=== PATIENT | male | born 1945 | race Caucasian/White ===

== ENCOUNTER → 2020-02-08 | Outpatient (CLI) | payer MEDICARE, BC ==
--- NOTE | 2020-02-09 06:38 | CT ---
EXAMINATION TYPE: CT angio chest DATE OF EXAM: 02/08/2020 2:58 PM COMPARISON: None at this institution. HISTORY: Thoracic AAA CT DLP: 763.60 mGycm Automated exposure control for dose reduction was used. CONTRAST: CTA scan of the thorax is performed without and with IV Contrast, patient injected with 100 ml mL of Isovue 370, thoracic aneurysm protocol. 3D reconstructed [facility] and reviewed.. FINDINGS: LUNGS: Mild bilateral linear scarring and/or atelectasis. No suspicious focal consolidation or ground glass opacity. There is no pleural effusion or pneumothorax seen bilaterally. No concerning masses. The tracheobronchial tree is patent. MEDIASTINUM: There is satisfactory enhancement of the central pulmonary arteries, there is pulmonary embolism beginning in the right lower lobar branch axial image 31 with segmental extension. Additiona l segmental and subsegmental extension noted axial image 37. Main pulmonary artery measures 2.8 cm in diameter axial image 25. Adjacent ascending aorta measures up to 4.6 cm in diameter. No aneurysm ex tension into the arch. Normal three-vessel origin from the arch. Mild to moderate mixed plaque in the descending aorta There are no greater than 1 cm hilar or mediastinal lymph nodes. No pericardial e ffusion is seen. Heart size upper limits of normal. Prominent intra-arterial fat consistent with lipo matous hypertrophy. 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 No suspicious right v entricular dilatation. Fairly moderate biatrial dilatation noted. OTHER: Metallic hardware from right shoulder surgery is partially imaged causing streak artifact. Sm all simple appearing thin-walled cysts scattered throughout visualized portion of the bilateral kidne ys. There is 3.4 cm aneurysm AP diameter in the upper to mid abdominal aorta axial image 66. Moderate multilevel spurring in the spine. IMPRESSION: 1. Right-sided lower lobe pulmonary embolism is present. 2. There is ascending aortic aneurysm up to 4.6 cm in diameter. Additional 3.4 cm aneurysm of the vis ualized abdominal aorta noted. A [place] critical message alert has been initiated for Kolton Elaine MD via the [employer] Critical Results System on 02/09/2020 6:35 AM. This message alert has been sent to Kolton Elaine MD via the preferences provided by the clinician for the receipt of Radiology Critical Findings. [facility] [place] [id number].
== END | disposition home or self-care (01) ==
LOC: RADCTMAIN 13:08
PROVIDERS: ATTEND Internal Medicine Cardiovascular Disease
DX: I26.99 Other pulmonary embolism without acute cor pulmonale (principal); I71.2 Thoracic aortic aneurysm, without rupture
CPT/HCPCS: 82565; 84520; 71275; 36415; Q9967